=== PATIENT | female | born 1930 | race Caucasian/White ===

== ENCOUNTER 2020-08-17 10:06 | Emergency (ER) | payer MEDICARE, BC ==
[~2020-08-17 10:06] MED LIST: ACETAZOLAMIDE250 MG PO; ASPIRIN CHEWABL81 MG PO; CALCIUM 500 +1 EAC3 PO; CARDURA 2MG TAB2 MG PO; CARVEDILOL12.5 MG PO; COREG 3.125M3.125 MG PO; CVS CALCIUM 601 EAC3 PO; DIAMOX 250 MG250 MG PO; ELIQUIS 2.5 MG2.5 MG PO; FERROUS SULFAT325 M2 PO; K-DUR TAB 20 M20 MEQ PO; KLOR-CON M1010 MEQ PO; LASIX 40 MG TAB40 MG PO; LASIX TAB 20 MG20 MG PO; LIPITOR TAB 2020 MG PO; NITROGLYCERIN0.4 MG SL; PRESERVISION A1 EACH PO; PROTONIX 40 MG40 M1 PO; REFRESH TEARS15 ML OP; TACTINAL325 MG PO; ZESTRIL/PRINIVI10 MG PO
[2020-08-17 12:44] LABS: RED BLOOD COUNT 3.34 M/UL (4.00-5.10); WHITE BLOOD COUNT 7.9 K/UL (4.5-11.0)
[2020-08-17 13:02] LABS: BUN/CREATININE RATIO 42 (0-10)
== END 2020-08-17 17:00 | disposition home or self-care (01) ==
LOC: ER1 10:06
PROVIDERS: Internal Medicine
DX: R55 Syncope and collapse (principal); R53.1 Weakness; I11.0 Hypertensive heart disease with heart failure; I50.9 Heart failure, unspecified; E78.5 Hyperlipidemia, unspecified; K21.9 Gastro-esophageal reflux disease without esophagitis; Z88.0 Allergy status to penicillin
CPT/HCPCS: 36415; 70450; 71045; 80053; 81001; 84484; 85025; 99284